=== PATIENT | male | born 1965 | race African-American/Black ===

== ENCOUNTER 2019-04-05 10:53 | Observation (INO) | payer BC ==
[2019-04-05] MEDS ORDERED: NITROGLYCERIN OINT 1 INCH/GM PACKET TOPICAL STA (11:49)
[2019-04-05 12:05] LABS: Basophils % (A) 1 %; Eosinophils # (A) 0.2 k/uL (0-0.7); Eosinophils % (A) 4 %; HCT 40.8 % (39.0-53.0); Lymphocytes # (A) 1.7 k/uL (1.0-4.8); Lymphocytes % (A) 29 %; MCH 30.6 pg (25.0-35.0); MCHC 34.4 g/dL (31.0-37.0); MCV 88.7 fL (80.0-100.0); Mean Platelet Volume 9.1; Monocytes # (A) 0.4 k/uL (0-1.0); Monocytes % (A) 7 %; Neutrophils # (A) 3.3 k/uL (1.3-7.7); Neutrophils % (A) 58 %; Platelet Count 197 k/uL (150-450); RBC 4.59 m/uL (4.30-5.90); WBC 5.8 k/uL (3.8-10.6)
[2019-04-05 12:13] LABS: ALT 50 U/L (4-49); AST 37 U/L (17-59); African American GFR (CKD) >90 (>60 ml/min/1.73 sqM); Alkaline Phosphatase 79 U/L (38-126); Anion Gap 8 mmol/L; Blood Urea Nitrogen 10 mg/dL (9-20); Calcium 9.3 mg/dL (8.4-10.2); Carbon Dioxide 27 mmol/L (22-30); Chloride 103 mmol/L (98-107); Glucose 112 mg/dL (74-99); Magnesium 1.5 mg/dL (1.6-2.3); Non-African American GFR(CKD) 78 (>60 ml/min/1.73 sqM); Sodium 138 mmol/L (137-145); Total Bilirubin 0.6 mg/dL (0.2-1.3); Total Protein 7.6 g/dL (6.3-8.2)
--- NOTE | 2019-04-05 12:17 | ED ---
General Adult HPI - General Chief complaint: Chest Pain Stated complaint: Chest pain Time Seen by Provider: 04/05/19 11:25 Source: EMS, RN notes reviewed, old records reviewed Mode of arrival: EMS Limitations: no limitations - History of Present Illness Initial comments: This a 53-year-old male who presents emergency Department with no significant past medical history. Patient denies smoking patient denies any previous cardiac issues patient denies diabetes hypertension high cholesterol. Patient states he was at work having a stressful day when he needed to go down caught off the lock. Patient states she used big cutters and he had his arms LIKE trying to put a significant amount of force onto the cutters to cut the lock at which point in time he felt pain in the middle of his chest. Patient states the pain was reproducible with movement it wasn't severe but it was still noticeable. Patient states as he moved the pain would get worse as he relaxed the pain would get better. Patient states it lasted for about 10-15 minutes and then it subsided. Patient has no family history of any heart disease mom dad or siblings. Patient currently is pain-free patient denied any shortness of breath any radiation of the pain patient denies any diaphoretic episodes. Patient denies any nausea. Patient denies abdominal pain patient denies any back pain. Patient denies headache patient denies numbness weakness. Patient denies lightheadedness or dizziness. Review of Systems ROS Statement: Those systems with pertinent positive or pertinent negative responses have been documented in the HPI. ROS Other: All systems not noted in ROS Statement are negative. Past Medical History Past Medical History: No Reported History History of Any Multi-Drug Resistant Organisms: None Reported Past Surgical History: No Surgical Hx Reported Past Psychological History: No Psychological Hx Reported Smoking Status: Never smoker Past Alcohol Use History: None Reported Past Drug Use History: None Reported General Exam - General Exam Comments Initial Comments: GENERAL: Patient is well-developed and well-nourished. Patient is nontoxic and well- hydrated and is in no acute distress. ENT: Neck is soft and supple. No significant lymphadenopathy is noted. Oropharynx is clear. Moist mucous membranes. Neck has full range of motion without eliciting any pain. EYES: The sclera were anicteric and conjunctiva were pink and moist. Extraocular movements were intact and pupils were equal round and reactive to light. Eyelids were unremarkable. PULMONARY: Unlabored respirations. Good breath sounds bilaterally. No audible rales rhonchi or wheezing was noted. CARDIOVASCULAR: There is a regular rate and rhythm without any murmurs gallops or rubs. ABDOMEN: Soft and nontender with normal bowel sounds. SKIN: Skin is clear with no lesions or rashes and otherwise unremarkable. NEUROLOGIC: Patient is alert and oriented x3. Cranial nerves II through XII are grossly intact. Motor and sensory are also intact. Normal speech, volume and content. Symmetrical smile. MUSCULOSKELETAL: Normal extremities with adequate strength and full range of motion. No lower extremity swelling or edema. No calf tenderness. LYMPHATICS: No significant lymphadenopathy is noted PSYCHIATRIC: Normal psychiatric evaluation. Limitations: no limitations Course Vital Signs 04/05/19 04/05/19 04/05/19 11:07 11:25 11:27 Temperature 98.1 F Pulse Rate 86 76 Pulse Rate [ 78 Glove Pairer ] Respiratory 11 L 18 Rate Blood Pressure 144/100 O2 Sat by Pulse 99 99 Oximetry 04/05/19 04/05/19 04/05/19 11:30 12:00 12:30 Temperature Pulse Rate 84 80 79 Pulse Rate [ Glove Pairer ] Respiratory 16 16 14 Rate Blood Pressure 146/95 141/96 O2 Sat by Pulse 97 98 Oximetry 04/05/19 12:56 Temperature Pulse Rate 79 Pulse Rate [ Glove Pairer ] Respiratory 16 Rate Blood Pressure 138/86 O2 Sat by Pulse 98 Oximetry Medical Decision Making - Medical Decision Making EKG shows normal sinus rhythm at 87 bpm MN interval 296 QRS is 90 QT interval 340 QTC is 418. Patient's EKG shows no ST segment elevation or depression or T wave abnormalities are noted. Chest x-ray shows no acute abnormality. Patient states after I went back into reevaluate him that he was having some chest pain prior to using the clippers. Patient states he feel more comfortable if he was further evaluated and see cardiology. I spoke with the [facility] hospitalist and they agreed to admit the patient admitted the patient consult cardiology. - Lab Data Result diagrams: 04/05/19 11:10 04/05/19 11:10 Lab Results 04/05/19 04/05/19 04/05/19 Range/Units 11:10 11:10 11:10 WBC 5.8 (3.8-10.6) k/uL RBC 4.59 (4.30-5.90) m/uL Hgb 14.0 (13.0-17.5) gm/dL Hct 40.8 (39.0-53.0) % MCV 88.7 (80.0-100.0) fL MCH 30.6 (25.0-35.0) pg MCHC 34.4 (31.0-37.0) g/dL RDW 12.0 (11.5-15.5) % Plt Count 197 (150-450) k/uL Neutrophils % 58 % Lymphocytes % 29 % Monocytes % 7 % Eosinophils % 4 % Basophils % 1 % Neutrophils # 3.3 (1.3-7.7) k/uL Lymphocytes # 1.7 (1.0-4.8) k/uL Monocytes # 0.4 (0-1.0) k/uL Eosinophils # 0.2 (0-0.7) k/uL Basophils # 0.0 (0-0.2) k/uL PT 10.3 (9.0-12.0) sec INR 1.0 (<1.2) APTT 22.1 (22.0-30.0) sec Sodium 138 (137-145) mmol/L Potassium 4.0 (3.5-5.1) mmol/L Chloride 103 (98-107) mmol/L Carbon Dioxide 27 (22-30) mmol/L Anion Gap 8 mmol/L BUN 10 (9-20) mg/dL Creatinine 1.08 (0.66-1.25) mg/dL Est GFR (CKD-EPI)AfAm >90 (>60 ml/min/1.73 sqM) Est GFR (CKD-EPI)NonAf 78 (>60 ml/min/1.73 sqM) Glucose 112 H (74-99) mg/dL Calcium 9.3 (8.4-10.2) mg/dL Magnesium 1.5 L (1.6-2.3) mg/dL Total Bilirubin 0.6 (0.2-1.3) mg/dL AST 37 (17-59) U/L ALT 50 H (4-49) U/L Alkaline Phosphatase 79 (38-126) U/L Troponin I (0.000-0.034) ng/mL Total Protein 7.6 (6.3-8.2) g/dL Albumin 4.0 (3.5-5.0) g/dL 04/05/19 Range/Units 11:10 WBC (3.8-10.6) k/uL RBC (4.30-5.90) m/uL Hgb (13.0-17.5) gm/dL Hct (39.0-53.0) % MCV (80.0-100.0) fL MCH (25.0-35.0) pg MCHC (31.0-37.0) g/dL RDW (11.5-15.5) % Plt Count (150-450) k/uL Neutrophils % % Lymphocytes % % Monocytes % % Eosinophils % % Basophils % % Neutrophils # (1.3-7.7) k/uL Lymphocytes # (1.0-4.8) k/uL Monocytes # (0-1.0) k/uL Eosinophils # (0-0.7) k/uL Basophils # (0-0.2) k/uL PT (9.0-12.0) sec INR (<1.2) APTT (22.0-30.0) sec Sodium (137-145) mmol/L Potassium (3.5-5.1) mmol/L Chloride (98-107) mmol/L Carbon Dioxide (22-30) mmol/L Anion Gap mmol/L BUN (9-20) mg/dL Creatinine (0.66-1.25) mg/dL Est GFR (CKD-EPI)AfAm (>60 ml/min/1.73 sqM) Est GFR (CKD-EPI)NonAf (>60 ml/min/1.73 sqM) Glucose (74-99) mg/dL Calcium (8.4-10.2) mg/dL Magnesium (1.6-2.3) mg/dL Total Bilirubin (0.2-1.3) mg/dL AST (17-59) U/L ALT (4-49) U/L Alkaline Phosphatase (38-126) U/L Troponin I <0.012 (0.000-0.034) ng/mL Total Protein (6.3-8.2) g/dL Albumin (3.5-5.0) g/dL Disposition Clinical Impression: Chest pain Disposition: ADMITTED IP TO THIS [facility] Referrals: Nonstaff,Physician [Primary Care Provider] - 1-2 days Time of Disposition: 13:30
[2019-04-05 12:18] LABS: Partial Thromboplastin Time 22.1 sec (22.0-30.0); Prothrombin Time 10.3 sec (9.0-12.0)
--- NOTE | 2019-04-05 12:29 | XR ---
EXAMINATION TYPE: XR chest 2V DATE OF EXAM: 04/05/2019 COMPARISON: NONE HISTORY: Chest pain TECHNIQUE: Frontal and lateral views of the chest are obtained. FINDINGS: There is no focal air space opacity, pleural effusion, or pneumothorax seen. The cardiac silhouette size is within normal limits. The osseous structures are intact. Mild multilevel degener ative change of the spine. IMPRESSION: No acute cardiopulmonary process.
[2019-04-05] MEDS ORDERED: NITROGLYCERIN SL TABS 0.4 MG TAB SUBLINGUAL PRN (13:32)
--- NOTE | 2019-04-05 15:52 | P.HPIM ---
History of Present Illness this is a pleasant 53 -Chinese male with past medical history of asthma, GERD. Presents because of chest pain. Patient states that his chest pain central, nonradiating that started today for 15 minutes, history this pain was nonspecific in character, and not associated with dyspnea, no palpitation, no nausea vomiting, no headache or dizziness.patient pain resolved spontaneously however on the way he received baby aspirin by the EMS staff currently patient is as symptomatic Patient denies smoking, alcohol or illicit tracts. Patient says she is not taking prescription medication at home Review of Systems CONSTITUTIONAL: No fever, no malaise, no fatigue. HEENT: No recent visual problems or hearing problems. Denied any sore throat. CARDIOVASCULAR: No orthopnea, PND, no palpitations, no syncope. PULMONARY: No shortness of breath, no cough, no hemoptysis. GASTROINTESTINAL: No diarrhea, no nausea, no vomiting, no abdominal pain. Normoactive bowel sounds. NEUROLOGICAL: No headaches, no weakness, no numbness. HEMATOLOGICAL: Denies any bleeding or petechiae. GENITOURINARY: Denies any burning micturition, frequency, or urgency. MUSCULOSKELETAL/RHEUMATOLOGICAL: Denies any joint pain, swelling, or any muscle pain. ENDOCRINE: Denies any polyuria or polydipsia. Past Medical History Past Medical History: Asthma, GERD/Reflux Additional Past Medical History / Comment(s): Pt states his blood pressure tends to run high but not on medication yet, bronchitis, R knee and L hip pain with weather changes. History of Any Multi-Drug Resistant Organisms: None Reported Past Surgical History: No Surgical Hx Reported Additional Past Surgical History / Comment(s): teeth extractions Past Anesthesia/Blood Transfusion Reactions: No Reported Reaction Smoking Status: Never smoker - Past Family History Mother Family Medical History: Cancer Additional Family Medical History / Comment(s): Mother from breast cancer at the age of 61yrs. Father History Unknown: Yes Additional Family Medical History / Comment(s): Father in a motorcycle accident. Medications and Allergies Home Medications Medication Instructions Recorded Confirmed Type Zzzquil 30 ml PO HS 04/05/19 04/05/19 History Allergies Allergy/AdvReac Type Severity Reaction Status Date / Time codeine Allergy Rash/Hives Verified 04/05/19 13:49 Physical Exam Vitals: Vital Signs Temp Pulse Pulse Resp BP Pulse Ox 04/05/19 12:56 79 16 138/86 98 04/05/19 12:30 79 14 98 04/05/19 12:00 80 16 141/96 97 04/05/19 11:30 84 16 146/95 04/05/19 11:27 78 04/05/19 11:25 98.1 F 76 18 144/100 99 04/05/19 11:07 86 11 L 99 Intake and Output 04/04/19 04/05/19 04/05/19 22:59 06:59 14:59 Other: Weight 102.058 kg GENERAL: The patient is alert and oriented x3, not in any acute distress. Well developed, well nourished. HEENT: Pupils are round and equally reacting to light. EOMI. No scleral icterus. No conjunctival pallor. Normocephalic, atraumatic. No pharyngeal erythema. No thyromegaly. CARDIOVASCULAR: S1 and S2 present. No murmurs, rubs, or gallops. PULMONARY: Chest is clear to auscultation, no wheezing or crackles. ABDOMEN: Soft, nontender, nondistended, normoactive bowel sounds. No palpable organomegaly. MUSCULOSKELETAL: No joint swelling or deformity. EXTREMITIES: No cyanosis, clubbing, or pedal edema. NEUROLOGICAL: Gross neurological examination did not reveal any focal deficits. SKIN: No rashes. No petechiae Results CBC & Chem 7: 04/05/19 11:10 04/05/19 11:10 Labs: Abnormal Lab Results - Last 24 Hours (Table) 04/05/19 Range/Units 11:10 Glucose 112 H (74-99) mg/dL Magnesium 1.5 L (1.6-2.3) mg/dL ALT 50 H (4-49) U/L Thrombosis Risk Factor Assmnt - Choose All That Apply Any of the Below Risk Factors Present?: Yes Each Factor Represents 1 point: Age 41-60 years, Obesity (BMI >25) Other Risk Factors: No Other congenital or acquired thrombophilia - If yes, enter type in comment: No Thrombosis Risk Factor Assessment Total Risk Factor Score: 2 Thrombosis Risk Factor Assessment Level: Low Risk Assessment and Plan Assessment: Chest pain, rule out cardiac causes Asthma, not an active issue GERD Plan: this is a pleasant 53 years old male who presents with chest pain. We'll do serial troponins, EKG. Call cardiology consult. Labs and medication were reviewed.. Continue same treatment. Continue with symptomatic treatment. Resume home medication. Monitor lytes and vitals. DVT and GI prophylaxis. Further recommendations of the clinical course of the patient DVT prophylaxis: Subcutaneous heparin GI Prophylaxis: Pepcid Prognosis is guarded
--- NOTE | 2019-04-05 16:44 | US ---
EXAMINATION TYPE: US venous doppler duplex LE DATE OF EXAM: 04/05/2019 4:21 PM COMPARISON: NONE CLINICAL HISTORY: Rule out DVT. Chest pain, no leg complaints per patient. SIDE PERFORMED: Bilateral TECHNIQUE: The lower extremity deep venous system is examined utilizing real time linear array sonog hetal with graded compression, doppler sonography and color-flow sonography. VESSELS IMAGED: External Iliac Vein (EIV) Common Femoral Vein Deep Femoral Vein Greater Saphenous Vein * Femoral Vein Popliteal Vein Small Saphenous Vein * Proximal Calf Veins (* superficial vessels) Right Leg: Negative for DVT Left Leg: Negative for DVT Rouleaux flow noted throughout. IMPRESSION: No evidence of deep venous thrombosis in both legs.
[2019-04-05] MEDS: NITROGLYCERIN OINT 1 INCH/GM PACKET TOPICAL SCH (20:19)
[2019-04-05] MEDS: HEPARIN SODIUM,PORCINE 5,000 UNIT/ML 1 ML VIAL SQ SCH (20:19)
[2019-04-05] MEDS: FAMOTIDINE 20 MG/2 ML VIAL IV SCH (20:19)
[2019-04-06] MEDS: NITROGLYCERIN OINT 1 INCH/GM PACKET TOPICAL SCH ×3 (00:54→13:05)
[2019-04-06 04:44] LABS: Cholesterol 170 mg/dL (<200); HDL Cholesterol 31 mg/dL (40-60); LDL Cholesterol,Calculated 102 mg/dL (0-99); Triglycerides 185 mg/dL (<150)
[2019-04-06 07:27] VITALS: RESP 18
[2019-04-06] MEDS ORDERED: ASPIRIN 325 MG TAB PO SCH (09:00)
[2019-04-06] MEDS: HEPARIN SODIUM,PORCINE 5,000 UNIT/ML 1 ML VIAL SQ SCH (10:35)
[2019-04-06] MEDS: FAMOTIDINE 20 MG/2 ML VIAL IV SCH (10:35)
[2019-04-06 11:28] VITALS: BP 150/97; PULSE 73; TEMP 98.1
--- NOTE | 2019-04-06 12:00 | P.CRDCN ---
History of Present Illness Consult date: 04/06/19 Chief complaint: Chest pain History of present illness: This is a very pleasant 53-year-old gentleman with no significant past medical history presented to the emergency room complaining of chest discomfort. The patient is not aware of any prior cardiac history nor diabetes or hypertension or dyslipidemia. 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 With he started using it he started experiencing chest discomfort. He described the discomfort as sharp, in the mid of the chest, without any radiation to the arm or neck or shoulders, and without any associated symptoms and lasted for about 10-15 minutes. The discomfort after that completely resolved. He continues to be chest pain-free during his hospitalization. The EKG showed sinus rhythm without any significant ST or T- wave abnormalities. The cardiac enzymes were checked and came in to be unremarkable. The rest of the blood work came in to be unremarkable. I advised the patient the need to have a stress test to rule out severe coronary artery disease but the patient would like to go home and have it done as an outpatient. I am going to get the patient up and around and if he is asymptomatic possibly, go home. Past Medical History Past Medical History: Asthma, GERD/Reflux Additional Past Medical History / Comment(s): Pt states his blood pressure tends to run high but not on medication yet, bronchitis, R knee and L hip pain with weather changes. History of Any Multi-Drug Resistant Organisms: None Reported Past Surgical History: No Surgical Hx Reported Additional Past Surgical History / Comment(s): teeth extractions Past Anesthesia/Blood Transfusion Reactions: No Reported Reaction Smoking Status: Never smoker - Past Family History Mother Family Medical History: Cancer Additional Family Medical History / Comment(s): Mother from breast cancer at the age of 61yrs. Father History Unknown: Yes Additional Family Medical History / Comment(s): Father in a motorcycle accident. Medications and Allergies Home Medications Medication Instructions Recorded Confirmed Type Zzzquil 30 ml PO HS 04/05/19 04/05/19 History Allergies Allergy/AdvReac Type Severity Reaction Status Date / Time codeine Allergy Rash/Hives Verified 04/05/19 13:49 Physical Exam Vitals: Vital Signs Temp Pulse Pulse Pulse Resp BP BP 04/06/19 11:26 98.1 F 73 18 04/06/19 07:10 97.7 F 70 18 04/06/19 04:00 98.1 F 70 16 114/73 04/06/19 03:45 17 04/06/19 00:10 71 16 04/05/19 23:42 98.0 F 69 16 126/68 04/05/19 19:30 78 73 16 04/05/19 19:01 98.0 F 73 16 116/75 04/05/19 16:00 78 74 16 04/05/19 14:34 97.8 F 78 74 16 148/92 04/05/19 12:56 79 16 138/86 04/05/19 12:30 79 14 04/05/19 12:00 80 16 141/96 BP Pulse Ox 04/06/19 11:26 150/97 97 04/06/19 07:10 141/91 04/06/19 04:00 100 04/06/19 03:45 04/06/19 00:10 04/05/19 23:42 99 04/05/19 19:30 04/05/19 19:01 99 04/05/19 16:00 04/05/19 14:34 97 04/05/19 12:56 98 04/05/19 12:30 98 04/05/19 12:00 97 Intake and Output 04/05/19 04/06/19 04/06/19 22:59 06:59 14:59 Intake Total 300 Balance 300 Intake: Oral 300 Other: Voiding Method Toilet Toilet Toilet # Voids 1 1 - Constitutional General appearance: no acute distress - Respiratory Respiratory: bilateral: CTA - Cardiovascular Rhythm: regular Heart sounds: normal: S1, S2 Results 04/05/19 11:10 04/05/19 11:10 Cardiac Enzymes 04/05/19 04/05/19 04/05/19 Range/Units 11:10 11:10 17:21 AST 37 (17-59) U/L Troponin I <0.012 <0.012 (0.000-0.034) ng/mL 04/05/19 Range/Units 22:19 AST (17-59) U/L Troponin I <0.012 (0.000-0.034) ng/mL Coagulation 04/05/19 Range/Units 11:10 PT 10.3 (9.0-12.0) sec APTT 22.1 (22.0-30.0) sec Lipids 04/05/19 Range/Units 11:10 Triglycerides 185 H (<150) mg/dL Cholesterol 170 (<200) mg/dL HDL Cholesterol 31 L (40-60) mg/dL CBC 04/05/19 Range/Units 11:10 WBC 5.8 (3.8-10.6) k/uL RBC 4.59 (4.30-5.90) m/uL Hgb 14.0 (13.0-17.5) gm/dL Hct 40.8 (39.0-53.0) % Plt Count 197 (150-450) k/uL Comprehensive Metabolic Panel 04/05/19 Range/Units 11:10 Sodium 138 (137-145) mmol/L Potassium 4.0 (3.5-5.1) mmol/L Chloride 103 (98-107) mmol/L Carbon Dioxide 27 (22-30) mmol/L BUN 10 (9-20) mg/dL Creatinine 1.08 (0.66-1.25) mg/dL Glucose 112 H (74-99) mg/dL Calcium 9.3 (8.4-10.2) mg/dL AST 37 (17-59) U/L ALT 50 H (4-49) U/L Alkaline Phosphatase 79 (38-126) U/L Total Protein 7.6 (6.3-8.2) g/dL Albumin 4.0 (3.5-5.0) g/dL Current Medications Generic Name Dose Route Start Last Admin Trade Name Mauriq PRN Reason Stop Dose Admin Aspirin 325 mg 04/06/19 09:00 04/06/19 10:35 Aspirin PO 325 mg DAILY SHASHANK Administration Famotidine 20 mg 04/05/19 21:00 04/06/19 10:35 Pepcid IV 20 mg Q12HR SHASHANK Administration Heparin Sodium (Porcine) 5,000 unit 04/05/19 21:00 04/06/19 10:35 Heparin SQ 5,000 unit Q12HR SHASHANK Administration Nitroglycerin 0.4 mg 04/05/19 13:32 Nitrostat SUBLINGUAL Q5M PRN Chest Pain Nitroglycerin 1 inch 04/05/19 18:00 04/06/19 05:56 Nitro-Bid Oint TOPICAL Not Given Q6HR SHASHANK Intake and Output 04/05/19 04/06/19 04/06/19 22:59 06:59 14:59 Intake Total 300 Balance 300 Intake: Oral 300 Other: Voiding Method Toilet Toilet Toilet # Voids 1 1 04/05/19 11:10 04/05/19 11:10 Assessment and Plan Assessment: Assessment #1 atypical/musculoskeletal chest pain Plan #1 acute coronary event was ruled out #2 the patient can be discharged home and I will follow-up with the patient as an outpatient
--- NOTE | 2019-04-06 14:15 | P.DS ---
Providers Date of admission: 04/05/19 13:32 Attending physician: Oleg Lange MD Consults: 04/05/19 13:32 Consult Physician Urgent Consulting Provider: [facility] Consult Reason/Comments: Chest pain Do you want consulting provider notified?: Yes Primary care physician: Physician Nonstaff Hospital Course: diagnoses: Chest pain, resolved. 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 Presents because of chest pain. Patient states that his chest pain central, nonradiating that started today for 15 minutes, history this pain was nonspecific in character, and not associated with dyspnea, no palpitation, no nausea vomiting, no headache or dizziness.patient pain resolved spontaneously however on the way he received baby aspirin by the EMS staff currently patient is as symptomatic Patient denies smoking, alcohol or illicit tracts. Patient says she is not taking prescription medication at home patient has been evaluated by restaurant recruiter who cleared him for discharge. He referred him to the outpatient setting. Appointment has made for the patient with Dr. Luna on 04/15/2019 at 4:30 PM and he agrees with it and said he will follow-up. Problems and management plan were discussed with the patient and he verbalized understanding and acceptance Patient was found stable and can be discharged home however he needs follow-up as an outpatient. Patient was instructed to follow up with PCP within one week and patient agrees Gen: patient is a AAOx3, no distress CVS: S1-S2, RRR, no murmur Lungs: B/L CTA, no wheezing Abdomen: soft, no distention, no tenderness, positive bowel sounds Extremity: no leg edema or induration Time spent more than 35 minutesour Plan - Discharge Summary Discharge Rx Participant: No New Discharge Prescriptions: No Action Zzzquil 30 ml PO HS Discharge Medication List Zzzquil 30 ml PO HS 04/05/19 [History] Follow up Appointment(s)/Referral(s): Christian Wynn MD [STAFF PHYSICIAN] - 04/15/19 4:30 pm (patient is to see Dr. Wynn.) Nonstaff,Physician [Primary Care Provider] - 1-2 days Patient Instructions/Handouts: Chest Pain (DC)
[2019-04-06] MEDS ORDERED: FAMOTIDINE 20 MG TAB PO SCH (21:00)
== END 2019-04-06 14:28 | disposition home or self-care (01) ==
LOC: EC 10:53 → 1SOBS 13:32
PROVIDERS: ADMIT Internal Medicine; ATTEND Internal Medicine
DX: R07.89 Other chest pain (principal); J45.909 Unspecified asthma, uncomplicated; K21.9 Gastro-esophageal reflux disease without esophagitis; R03.0 Elevated blood-pressure reading, without diagnosis of hypertension; M25.561 Pain in right knee; M25.552 Pain in left hip; E66.9 Obesity, unspecified; Z68.30 Body mass index [BMI] 30.0-30.9, adult; Z79.899 Other long term (current) drug therapy; Z87.09 Personal history of other diseases of the respiratory system; Z98.890 Other specified postprocedural states; Z88.5 Allergy status to narcotic agent; Z80.3 Family history of malignant neoplasm of breast
CPT/HCPCS: 93005 ×2; 96372 ×2; 96374; 96376; 99285; 36415; 80061; 80053; 83735; 84484; 85025; 85610; 85730; 71046; 93970; G0378 ×2; J1644 ×2